=== PATIENT | male | born 2000 | race Two or more races ===

== ENCOUNTER 2018-02-05 09:50 | Emergency (ER) | payer OTHER ==
[2018-02-05 10:37] VITALS: BP 114/75; PULSE 83; TEMP 98.1; BMI 23.0
[2018-02-05] MEDS ORDERED: predniSONE 20 MG TABLET (UD) PO ONE (11:10)
[2018-02-05] MEDS ORDERED: ALBUTEROL SO4 2.5/IPRATROPIUM 0.5 INH SOL 3 ML VIAL.NEB. NEB ONE ×2 (11:10→11:12)
[2018-02-05] MEDS ORDERED: predniSONE 20 MG TABLET (UD) ONE (11:12)
--- NOTE | 2018-02-05 11:16 | PDOC ---
History of Present Illness - General Chief Complaint: Cold Symptoms Stated Complaint: COUGH Time Seen by Provider: 02/05/18 11:06 History Source: Patient Exam Limitations: No Limitations - History of Present Illness Initial Comments: 02/05/18 11:10 17 yr male with cough for 2-3 weeks worse at night. Pt states he inhales dust at work this may be causing his symptoms. no fever no asthma history. Timing/Duration: reports: getting worse Severity: reports: moderate Possible Cause: Yes: no prior episodes Past History - Past Medical History Allergies/Adverse Reactions: Allergies Allergy/AdvReac Type Severity Reaction Status Date / Time No Known Allergies Allergy Verified 02/05/18 10:35 Home Medications: Ambulatory Orders Albuterol Sulfate Inhaler - [Ventolin HFA Inhaler -] 1 - 2 inh PO QID #1 inhaler 02/05/18 Montelukast Sodium [Singulair] 10 mg PO HS #30 tablet 02/05/18 Prednisone [Deltasone] 20 mg PO BID #6 tablet 02/05/18 COPD: No - Immunization History Immunization Up to Date: Yes - Suicide/Smoking/Psychosocial Hx Smoking Status: No Smoking History: Never smoked Have you smoked in the past 12 months: No Number of Cigarettes Smoked Daily: 0 Hx Alcohol Use: No Drug/Substance Use Hx: No Substance Use Type: None Respiratory Specific PMHX - Complaint Specific PMHX Angina: No Bronchitis: No Pneumonia: No Pulmonary Embolus: No TB (Tuberculosis): No Review of Systems - Review of Systems Able to Perform ROS?: Yes Is the patient limited American proficient: No Constitutional: No: Symptoms Reported Respiratory: Yes: Cough *Physical Exam - Vital Signs Last Vital Signs Temp Pulse Resp BP Pulse Ox 98.1 F 83 18 114/75 99 02/05/18 10:35 02/05/18 10:35 02/05/18 10:35 02/05/18 10:35 02/05/18 10:35 - Physical Exam General Appearance: Yes: Nourished, Appropriately Dressed HEENT: positive: EOMI, YOGESH Neck: positive: Supple Respiratory/Chest: positive: Wheezing Cardiovascular: positive: Regular Rhythm, Regular Rate Gastrointestinal/Abdominal: positive: Normal Bowel Sounds, Soft Musculoskeletal: positive: Normal Inspection Extremity: positive: Normal Capillary Refill, Normal Inspection, Normal Range of Motion Integumentary: positive: Normal Color, Dry, Warm Neurologic: positive: Fully Oriented, Alert, Normal Mood/Affect, Normal Response , Motor Strength 5/5 Moderate Sedation - Procedure Monitoring Vital Signs: Procedure Monitoring Vital Signs Temperature 98.1 F 02/05/18 10:35 Pulse Rate 83 02/05/18 10:35 Respiratory Rate 18 02/05/18 10:35 Blood Pressure 114/75 02/05/18 10:35 O2 Sat by Pulse Oximetry (%) 99 02/05/18 10:35 Medical Decision Making - Medical Decision Making 02/05/18 11:11 cc: cough wheezing for 2 weeks, chest tightness at night taking OTC cough meds with no relief speaking full sentences no distress pt refused CXR at this time will give duoneb prednisone now *DC/Admit/Observation/Transfer Diagnosis at time of Disposition: Bronchitis due to fumes and vapors - Discharge Dispostion Disposition: HOME Condition at time of disposition: Good - Prescriptions Prescriptions: Albuterol Sulfate Inhaler - [Ventolin HFA Inhaler -] 1 - 2 inh PO QID #1 inhaler Montelukast Sodium [Singulair] 10 mg PO HS #30 tablet Prednisone [Deltasone] 20 mg PO BID #6 tablet - Referrals Referrals: Dennys Blair MD [Primary Care Provider] - - Patient Instructions Printed Discharge Instructions: DI for Acute Bronchitis - Post Discharge Activity Forms/Work/School Notes: Back to Work
== END 2018-02-05 11:37 | disposition home or self-care (01) ==
LOC: JERFT 09:50
PROC: 3E0F7GC Introduction of Other Therapeutic Substance into Respiratory Tract, Via Natural or Artificial Opening (ICD-10-PCS; principal; 2018-02-05)
DX: J68.0 Bronchitis and pneumonitis due to chemicals, gases, fumes and vapors (principal)
CPT/HCPCS: 99281-25

== ENCOUNTER 2022-02-09 13:43 | Emergency (ER) | payer SELFPAY ==
[2022-02-09 14:26] VITALS: BP 122/77; PULSE 107; RESP 18; TEMP 98.9; BMI 27.4
[2022-02-09] MEDS ORDERED: DEXAMETHASONE SOD PHOSPHATE 10 MG/1 ML VIAL PO ONE (14:56)
[2022-02-09] MEDS: ALBUTEROL SO4 0.083% IH SOL 2.5 MG/3 ML VIAL.NEB. NEB SCH (15:47)
== END 2022-02-09 17:40 | disposition home or self-care (01) ==
LOC: JER 13:43
PROC: 3E0F7GC Introduction of Other Therapeutic Substance into Respiratory Tract, Via Natural or Artificial Opening (ICD-10-PCS; principal; 2022-02-09)
DX: J06.9 Acute upper respiratory infection, unspecified (principal)
CPT/HCPCS: 0241U-QW; 99283-25; J1100

== ENCOUNTER 2023-11-19 20:38 | Emergency (ER) | payer SELFPAY ==
[2023-11-19 20:49] VITALS: BP 131/71; PULSE 101; RESP 20; TEMP 98.6; BMI 33.6
[2023-11-19] MEDS ORDERED: ASPIRIN 81 MG CHEWABLE TABLETS ONE (23:21)
[2023-11-19] MEDS: ASPIRIN 81 MG CHEWABLE TABLETS PO ONE (23:23)
== END 2023-11-19 23:34 | disposition left against medical advice (07) ==
LOC: JER 20:38
DX: R07.89 Other chest pain (principal)
CPT/HCPCS: 93005; 93010; 99283-25